=== PATIENT | male | born 1960 | race Caucasian/White ===

== ENCOUNTER 2017-03-27 12:31 | Emergency (ER) | payer OTHER ==
[~2017-03-27] VITALS: Ht 182.9 cm; Wt 85.6 kg
[~2017-03-27 12:31] MED LIST: ALBUTEROL2.5 MG/3 M IH; CARVEDILOL6.25 MG PO; FUROSEMIDE40 MG PO; HYDROCODON-ACE1 EAC7 PO; K-DUR20 MEQ PO; MELOXICAM7.5 MG PO; OMEPRAZOLE20 MG PO; ST. JOSEPH ASPI81 MG PO; ULTRAM50 MG PO; VALIUM5 MG PO; VICODIN 5-3001 EACH PO; WARFARIN SODIU2.5 MG PO
[2017-03-27] MEDS ORDERED: KEFLEX500 MG PO (16:24)
[2017-03-27] MEDS ORDERED: MOTRIN800 MG PO (16:24)
[2017-03-27 16:54] VITALS: BP 130/93
== END 2017-03-27 17:00 | disposition home or self-care (01) ==
LOC: EME 12:31
PROC: 3E0234Z Introduction of Serum, Toxoid and Vaccine into Muscle, Percutaneous Approach (ICD-10-PCS; principal; 2017-03-27)
DX: S61.411A Laceration without foreign body of right hand, initial encounter (principal); Z23 Encounter for immunization; W45.8XXA Other foreign body or object entering through skin, initial encounter; Y99.0 Civilian activity done for income or pay; F17.200 Nicotine dependence, unspecified, uncomplicated
CPT/HCPCS: 73130; 99281; 99284